=== PATIENT | female | born 1940 | race Caucasian/White ===

== ENCOUNTER 2021-10-13 17:33 | Inpatient (IN) | payer MEDICARE, OTHER ==
[~2021-10-13] VITALS: Ht 165.1 cm; Wt 49.7 kg
[2021-10-13] MEDS ORDERED: TETANUS-DIPTH-ACEL PERTUSSIS 0.5ML SYR Tdap IM ONE (18:30)
[2021-10-13 19:55] LABS: Calcium 8.3 mg/dL (8.5-10.1); Potassium 3.6 mmol/L (3.5-5.1)
[2021-10-13 19:56] LABS: INR 1.08 (0.9-1.15)
[2021-10-13 20:01] LABS: BUN/Creatinine Ratio 39.2; Bilirubin, Total 0.9 mg/dL (0.2-1.0)
[2021-10-13 21:13] LABS: Basophils # (auto) 0.1 10 ^3/uL (0-0.2); Eosinophils # (auto) 0.1 10 ^3/uL (0-0.8); Eosinophils % (auto) 1.1 % (0.0-7.0); Hemoglobin 10.8 g/dL (12.2-16.2); Lymphocytes # (auto) 1.2 10 ^3/uL (0.4-5.4); Monocytes # (auto) 0.7 10 ^3/uL (0-1.3)
[2021-10-13 21:14] LABS: Basophils % (auto) 0.5 % (0.0-2.0); Hematocrit 31.9 % (36.0-46.0); Lymphocytes % (auto) 9.5 % (10.0-50.0); Mean Corpuscular Hemoglobin 35.2 pg (28.0-32.0); Mean Corpuscular Hgb Conc. 33.8 g/dL (32.0-36.0); Mean Corpuscular Volume 104.2 fL (80.0-100.0); Monocytes % (auto) 5.3 % (0.0-12.0); Neutrophils # (auto) 10.4 10 ^3/uL (1.6-8.6); Neutrophils % (auto) 83.6 % (37.0-80.0); Red Blood Cells 3.06 10^6/uL (4.0-5.20); Red Cell Distribution Width 13.8 % (11.8-14.3); White Blood Cell 12.4 10^3/uL (4.4-10.8)
[2021-10-14] MEDS ORDERED: cefTRIAXone 1GM/50ML D5W 50 ML IV ONE (09:00)
[2021-10-14] MEDS ORDERED: LACTATED RINGER'S 1,000 ML IV ONE (09:30)
[2021-10-14 10:28] LABS: Urine Bacteria NONE SEEN /hpf (None Seen); Urine Blood 2+ /uL (Negative); Urine Specific Gravity 1.019 (1.001-1.035); Urine WBC 2 /hpf (0 - 5)
[2021-10-14 10:46] LABS: Cholesterol 162 mg/dL (< 200); HDL Cholesterol 74 mg/dL (40-59); LDL Cholesterol 73 mg/dL (< 100); Triglycerides 63 mg/dL (< 150)
[2021-10-14] MEDS: LORazepam 0.5 MG TAB PO ONE ×2 (12:14→12:23)
[2021-10-14] MEDS ORDERED: LORazepam 2MG/ML-1ML VIAL IM ONE (12:15)
[2021-10-14] MEDS ORDERED: HALOPERIDOL LACTATE 5 MG/ML INJ VIAL IM ONE (13:15)
[2021-10-14] MEDS ORDERED: LEVE100020 PO (14:17)
[2021-10-14] MEDS ORDERED: AMLO-489 PO (14:17)
[2021-10-14] MEDS ORDERED: HALOPERIDOL LACTATE 5 MG/ML INJ VIAL IM PRN (14:30)
[2021-10-14] MEDS ORDERED: ENOXAPARIN SOD 30 MG/0.3 ML SYRINGE SC ONE (15:45)
[2021-10-14] MEDS ORDERED: ENOXAPARIN SOD 40 MG/0.4 ML SYRINGE SC ONE (15:45)
[2021-10-14 15:53] LABS: INR 1.06 (0.9-1.15)
[2021-10-14 15:54] LABS: Cholesterol 145 mg/dL (< 200); HDL Cholesterol 67 mg/dL (40-59); LDL Cholesterol 70 mg/dL (< 100); Triglycerides 84 mg/dL (< 150)
[2021-10-14] MEDS: SODIUM CHLORIDE 0.9% 1,000 ML IV SCH ×2 (16:35→23:09)
[2021-10-15] MEDS ORDERED: HALOPERIDOL LACTATE 5 MG/ML INJ VIAL IM ONE (01:45)
[2021-10-15 05:41] LABS: Basophils # (auto) 0.1 10 ^3/uL (0-0.2); Basophils % (auto) 0.8 % (0.0-2.0); Eosinophils # (auto) 0.3 10 ^3/uL (0-0.8); Hematocrit 33.4 % (36.0-46.0); Hemoglobin 11.5 g/dL (12.2-16.2); Lymphocytes # (auto) 1.3 10 ^3/uL (0.4-5.4); Lymphocytes % (auto) 14.5 % (10.0-50.0); Mean Corpuscular Hemoglobin 35.4 pg (28.0-32.0); Mean Corpuscular Hgb Conc. 34.4 g/dL (32.0-36.0); Monocytes # (auto) 0.5 10 ^3/uL (0-1.3); Monocytes % (auto) 5.9 % (0.0-12.0); Neutrophils # (auto) 6.6 10 ^3/uL (1.6-8.6); Neutrophils % (auto) 75.8 % (37.0-80.0); Nucleated Red Blood Cells % 0.2 %; Red Blood Cells 3.24 10^6/uL (4.0-5.20); Red Cell Distribution Width 13.8 % (11.8-14.3); White Blood Cell 8.7 10^3/uL (4.4-10.8)
[2021-10-15 06:01] LABS: Potassium 3.3 mmol/L (3.5-5.1)
[2021-10-15 06:12] LABS: Albumin 3.3 g/dL (3.4-5.0); Bilirubin, Total 1.4 mg/dL (0.2-1.0); Calcium 8.8 mg/dL (8.5-10.1); Total Protein 6.6 g/dL (6.4-8.2)
[2021-10-15 09:00] VITALS: BP 133/80
[2021-10-15 09:38] VITALS: BP 133/80
[2021-10-15] MEDS ORDERED: KEP500T PO (09:56)
[2021-10-15] MEDS ORDERED: [UNRECOGNIZED DRUG - CODE] PO (09:56)
[2021-10-15] MEDS ORDERED: MAGN400S25 PO (09:56)
[2021-10-15] MEDS ORDERED: MUPI2CRE17 EX (09:56)
[2021-10-15] MEDS ORDERED: LORA0.5T20 PO (09:56)
[2021-10-15] MEDS ORDERED: ALUM1SUS PO (09:58)
[2021-10-15] MEDS ORDERED: LOPE2CAP PO (09:58)
[2021-10-15] MEDS: SODIUM CHLORIDE 0.9% 1,000 ML IV SCH ×2 (11:32→17:29)
[2021-10-15] MEDS: ENOXAPARIN SOD 30 MG/0.3 ML SYRINGE SC SCH (11:32)
[2021-10-15] MEDS: cefTRIAXone 1GM/50ML D5W 50 ML IV SCH (11:33)
[2021-10-15 13:47] VITALS: BP 139/75
[2021-10-15 17:36] VITALS: BP 133/73
[2021-10-15 22:00] VITALS: BP 123/75
[2021-10-16 04:40] VITALS: BP 120/70
[2021-10-16] MEDS: SODIUM CHLORIDE 0.9% 1,000 ML IV SCH (06:50)
[2021-10-16 09:00] VITALS: BP 142/77
[2021-10-16] MEDS: cefTRIAXone 1GM/50ML D5W 50 ML IV SCH (09:30)
[2021-10-16] MEDS: ENOXAPARIN SOD 30 MG/0.3 ML SYRINGE SC SCH (09:30)
[2021-10-16] MEDS: amLODIPine BESYLATE 5 MG TAB PO SCH (09:35)
[2021-10-16 10:16] LABS: Calcium 7.9 mg/dL (8.5-10.1); Magnesium 1.9 mg/dL (1.6-2.6); Potassium 3.4 mmol/L (3.5-5.1)
[2021-10-16 10:18] LABS: BUN/Creatinine Ratio 20.6
[2021-10-16 10:30] LABS: Basophils # (auto) 0.1 10 ^3/uL (0-0.2); Basophils % (auto) 1.1 % (0.0-2.0); Eosinophils # (auto) 0.3 10 ^3/uL (0-0.8); Hemoglobin 10.4 g/dL (12.2-16.2); Mean Corpuscular Hgb Conc. 34.4 g/dL (32.0-36.0); Monocytes # (auto) 0.4 10 ^3/uL (0-1.3); Monocytes % (auto) 5.7 % (0.0-12.0); Neutrophils # (auto) 5.2 10 ^3/uL (1.6-8.6); Red Blood Cells 2.91 10^6/uL (4.0-5.20)
[2021-10-16 10:32] LABS: Eosinophils % (auto) 3.9 % (0.0-7.0); Hematocrit 30.2 % (36.0-46.0); Lymphocytes % (auto) 14.4 % (10.0-50.0); Mean Corpuscular Hemoglobin 35.6 pg (28.0-32.0); Mean Corpuscular Volume 103.6 fL (80.0-100.0); Neutrophils % (auto) 74.9 % (37.0-80.0); Nucleated Red Blood Cells % 0.2 %
[2021-10-16 13:00] VITALS: BP 133/84
[2021-10-16 17:00] VITALS: BP 136/71
[2021-10-16 21:43] VITALS: BP 121/72
[2021-10-17] MEDS: SODIUM CHLORIDE 0.9% 1,000 ML IV SCH (01:16)
[2021-10-17 05:00] VITALS: BP 128/70
[2021-10-17 06:12] LABS: Basophils # (auto) 0.1 10 ^3/uL (0-0.2); Monocytes # (auto) 0.5 10 ^3/uL (0-1.3); Red Cell Distribution Width 14.5 % (11.8-14.3)
[2021-10-17 06:16] LABS: Basophils % (auto) 1.6 % (0.0-2.0); Eosinophils # (auto) 0.7 10 ^3/uL (0-0.8); Eosinophils % (auto) 8.4 % (0.0-7.0); Hemoglobin 10.2 g/dL (12.2-16.2); Lymphocytes # (auto) 1.5 10 ^3/uL (0.4-5.4); Lymphocytes % (auto) 18.8 % (10.0-50.0); Mean Corpuscular Hemoglobin 36.2 pg (28.0-32.0); Mean Corpuscular Volume 103.6 fL (80.0-100.0); Neutrophils % (auto) 64.2 % (37.0-80.0); White Blood Cell 7.9 10^3/uL (4.4-10.8)
[2021-10-17 06:30] LABS: Calcium 8.1 mg/dL (8.5-10.1); Potassium 3.6 mmol/L (3.5-5.1)
[2021-10-17 06:33] LABS: BUN/Creatinine Ratio 26.7
[2021-10-17 08:00] VITALS: BP 132/71
[2021-10-17] MEDS: ENOXAPARIN SOD 30 MG/0.3 ML SYRINGE SC SCH (09:19)
[2021-10-17] MEDS: cefTRIAXone 1GM/50ML D5W 50 ML IV SCH (09:19)
[2021-10-17] MEDS: amLODIPine BESYLATE 5 MG TAB PO SCH (09:20)
[2021-10-17 12:00] VITALS: BP 122/72
[2021-10-17 12:45] VITALS: BP 130/71
== END 2021-10-17 16:00 | DRG 154 ==
LOC: ER 17:33 → OVERFLOW 10-14 09:24 → WEST WING 10-15 08:55
PROVIDERS: ADMIT Registered Nurse; ATTEND Internal Medicine Pulmonary Disease
PROC: 0HQ1XZZ Repair Face Skin, External Approach (ICD-10-PCS; principal; 2021-10-13)
DX: S02.2XXA Fracture of nasal bones, initial encounter for closed fracture (principal); G93.41 Metabolic encephalopathy; N39.0 Urinary tract infection, site not specified; S01.81XA Laceration without foreign body of other part of head, initial encounter; S51.011A Laceration without foreign body of right elbow, initial encounter; R55 Syncope and collapse; F02.80 Dementia in other diseases classified elsewhere, unspecified severity, without behavioral disturbance, psychotic disturbance, mood disturbance, and anxiety; G30.9 Alzheimer's disease, unspecified; I10 Essential (primary) hypertension; Z20.822 Contact with and (suspected) exposure to COVID-19; Z66 Do not resuscitate; R29.6 Repeated falls; G40.909 Epilepsy, unspecified, not intractable, without status epilepticus; W18.12XA Fall from or off toilet with subsequent striking against object, initial encounter; Y93.89 Activity, other specified; Y92.091 Bathroom in other non-institutional residence as the place of occurrence of the external cause; Z91.81 History of falling; Y99.8 Other external cause status
CPT/HCPCS: 12013; 36415; 70450; 71045; 72125; 80048; 80053; 80061; 81001; 82306; 82542; 83036; 83615; 83735; 84443; 85025; 85610; 87040; 87081; 87086; 92610; 93005; 93306; 93886; 96361; 96365; 96375; 97110; 97163; 97530; G0378; J0696